=== PATIENT | male | born 1945 | race Caucasian/White ===

== ENCOUNTER 2023-06-24 17:51 | Emergency (ER) | payer OTHER, SELFPAY ==
[2023-06-24 17:55] VITALS: BP 148/78
--- NOTE | 2023-06-24 19:23 | ED.GENMED ---
History of Present Illness
General
Chief Complaint: Skin Problem
Source: patient
Exam Limitations: none
Time Seen by Provider: 06/24/23 18:17
Nursing documentation reviewed up to this point in time: agreed with
Travel History
Have you had any contact with someone who has COVID-19?: No
Do you have any symptoms of coronavirus? Fever > 100 degrees, chills, cough, shortness of breath, sore throat, loss of taste or smell, muscle aches, or headache?: No
History of Present Illness
History of Present Illness:
77-year-old male with past medical history of heart disease on Plavix presenting to the emergency department today with concerns with bandage that was difficult to take off the primary care doctor was sent to the ER for further assessment of this.
Had a fingertip avulsion that was seen at urgent care 2 days ago.
Past History
Past History
ED Past Surgical History: Cardiac (cath), Orthopedic (knees) and Tonsilectomy
Patient has exhibited threatening behavior?: No
PSI?: No
Social History
Tobacco: Former smoker
Alcohol: Occasional (beer)
Personal:
Living: with family
Employment: Retired
Review of Systems
Review of Systems
Allergies reviewed?: Yes
All Other Systems: ROS reviewed and negative except as documented in HPI and ROS
Phy Exam
Physical Exam
Physical Exam:
GENERAL: Alert , in no apparent distress
EYE: pupils equal and reactive
NECK: Supple, no significant adenopathy.
ENT: o/p clr, mmm.
CARDIAC: Regular rate and rhythm .
LUNGS: Clear breath sounds bilaterally, no acute respiratory distress, no wheezes/rales/rhonchi
ABDOMEN: Soft, without focal tenderness, no r/g, no cvat
NEUROLOGICAL: Alert and oriented, no focal neuro deficits
SKIN: Fingertip avulsion of the left middle finger no active bleeding. Warm and dry, skin intact.
MUSCULOSKELETAL: No edema, well perfused.
PSYCH: Normal and appropriate interaction.
Course
Vital Signs
Initial and Last Documented VS:
Initial Vital Signs
Temp Pulse Resp BP Pulse Ox
97.8 F 62 18 148/78 96
06/24/23 17:55 06/24/23 17:55 06/24/23 17:55 06/24/23 17:55 06/24/23 17:55
Last Documented Vital Signs
Temp Pulse Resp BP Pulse Ox
97.8 F 62 18 148/78 96
06/24/23 17:55 06/24/23 17:55 06/24/23 17:55 06/24/23 17:55 06/24/23 17:55
Procedures
Foreign Body Removal-Skin
Wound explored and foreign body removed?: Yes
Anesthesia: other (Digital block left middle finger bupivacaine)
Foreign body removed using: forceps
Foreign body removed: completely
MDM/Problems Addressed
MDM/Problems Addressed:
77-year-old male presenting to the emergency department today with concerns of a bandage that is stuck on his left middle finger that was placed 2 days ago by an urgent care after a fingertip avulsion. Primary care was unable to remove it. Here
patient was given a digital block considering he claims that it was very uncomfortable and painful tried to remove it earlier this was then removed without issue new bandages placed patient stable for discharge return precautions given.
*Critical Care Note
Total Time (30-74mins, 75-104mins- exclusive of procedures): Not Applicable
ED Attending Note
-
Portions of this chart may have been created with voice recognition software.� Occasional wrong word or��sound alike� substitutions may have occurred due to the inherent limitations of voice recognition software.
Discharge Plan
Departure
Patient Disposition: Home (Routine Discharge)
Date of Disposition: 06/24/23
Time of Disposition: 19:23
Patient with high blood pressure during this ER visit?: No
Condition: Good
Covid-19: Not Applicable
Discharge Problem:
Fingertip avulsion
Instructions: Amputation of the Finger or Fingertip (DC)
Prescriptions:
No Action
finasteride 5 MG tablet
5 mg PO QPM
Skyrizi
1 dose IM [id number]
losartan 50 mg Tablet
50 mg PO DAILY
pantoprazole 40 mg Tablet,Delayed Release (Dr/Ec)
40 mg PO DAILY
sildenafil 100 mg tablet
100 mg PO DAILY PRN (Reason: intercourse)
atorvastatin 40 mg Tablet
40 mg PO HS Qty: 30 0RF
aspirin 81 mg Tablet,Chewable
81 mg PO DAILY Qty: 60 0RF
clopidogrel 75 mg Tablet
75 mg PO DAILY Qty: 20 0RF
Referrals:
Yousif Snyder MD [Active] - Follow up in 10 days
Activity Restrictions/Additional Instructions:
You came to the emergency department today with concerns of a bandage stuck on your finger. This was removed and replaced please leave on for 2 days and replace daily. Return to the emergency department any worsening, new or concerning symptoms.
== END 2023-06-24 20:00 | disposition home or self-care (01) ==
LOC: EMR 17:51
PROVIDERS: EMERGENCY PHYSICIAN Emergency Medicine; FAMILY PHYSICIAN Internal Medicine
DX: S61.223A Laceration with foreign body of left middle finger without damage to nail, initial encounter (principal); W31.2XXA Contact with powered woodworking and forming machines, initial encounter; I10 Essential (primary) hypertension; E78.5 Hyperlipidemia, unspecified; K57.90 Diverticulosis of intestine, part unspecified, without perforation or abscess without bleeding; M19.90 Unspecified osteoarthritis, unspecified site; Z85.828 Personal history of other malignant neoplasm of skin; Z87.891 Personal history of nicotine dependence
CPT/HCPCS: 99284; 10120; 64450

== ENCOUNTER → 2023-10-07 08:20 | Outpatient (REF) | payer OTHER, SELFPAY | LOC: RCS 08:20 | PROVIDERS: ATTENDING PHYSICIAN Internal Medicine Cardiovascular Disease; FAMILY PHYSICIAN Internal Medicine | DX: I42.9 Cardiomyopathy, unspecified (principal) | CPT/HCPCS: 93306 ==

== ENCOUNTER → 2024-02-23 07:26 | Outpatient (REF) | payer OTHER, SELFPAY | LOC: RCS 07:26 | PROVIDERS: ATTENDING PHYSICIAN Nurse Practitioner; FAMILY PHYSICIAN Internal Medicine | DX: I42.9 Cardiomyopathy, unspecified (principal) | CPT/HCPCS: 93017 ==

== ENCOUNTER → 2024-10-19 08:11 | Outpatient (REF) | payer MEDICARE, SELFPAY | LOC: HWRCS 08:11 | PROVIDERS: ATTENDING PHYSICIAN Internal Medicine Cardiovascular Disease; FAMILY PHYSICIAN Internal Medicine | DX: I42.9 Cardiomyopathy, unspecified (principal) | CPT/HCPCS: 93306 ==